=== PATIENT | female | born 1955 | race Two or more races ===

== ENCOUNTER 2019-03-26 05:35 | Day surgery (SDC) | payer OTHER ==
[~2019-03-26 05:35] MED LIST: LISINOPRIL10 MG PO; SIMVASTATIN40 MG PO; SINGULAIR10 MG PO; VENTOLIN HFA18 GM IH
== END 2019-03-26 18:00 | disposition home or self-care (01) ==
LOC: CIR.AMB 05:35
DX: K64.8 Other hemorrhoids (principal); K64.4 Residual hemorrhoidal skin tags